=== PATIENT | female | born 2005 | race Hispanic/Latino ===

== ENCOUNTER → 2024-03-20 | Day surgery (SDC) | payer OTHER ==
[2024-03-19 12:26] LABS: BASOPHILS % 0.3 % (0.0-1.0); EOSINOPHILS # (AUTO) 0.4 (0.0-0.4); EOSINOPHILS % 3.6 % (0.0-6.0); HEMATOCRIT 41.6 % (34.2-44.1); HEMOGLOBIN 12.5 g/dL (12.0-16.0); LYMPHOCYTES # (AUTO) 2.6 (1.0-3.2); LYMPHOCYTES % 21.8 % (18.0-39.1); MEAN CORPUSCULAR HEMOGLOBIN 25.1 pg (28-32); MEAN CORPUSCULAR VOLUME 83.4 fL (81-99); MONOCYTES # (AUTO) 0.9 (0.2-0.8); MONOCYTES % 7.4 % (4.4-11.3); NEUTROPHILS # (AUTO) 7.9 (2.1-6.9); NEUTROPHILS % 66.3 % (38.7-80.0); PLATELET COUNT 352 x10e3/uL (140-360); RED BLOOD COUNT 4.99 x10e6/uL (3.6-5.1); RED CELL DISTRIBUTION WIDTH 16.6 % (11.7-14.4); WHITE BLOOD COUNT 11.88 x10e3/uL (4.8-10.8)
[~2024-03-20] MED LIST: ACETAMINOPHEN 1000 MG/100 ML 100 ML IV ONE; ALIGN4 MG PO; BUPIVACAINE HCL 0.5% INJ 30 ML VIAL INJ ONE; CEFPROZIL500 MG PO; KEFLEX125 MG/5 M PO; PROCTOSOL-HC28.35 GM PR; TYLENOL #3 PO; ULTRAM 50MG50 MG PO
[2024-03-20] MEDS: LACTATED RINGER'S 1,000 ML ONE (09:16)
[2024-03-20] MEDS: CEFTRIAXONE 1 GM VIAL ONE (09:16)
[2024-03-20] MEDS: FENTANYL CITRATE/PF 100MCG/2 ML INJ ONE (10:40)
[2024-03-20 11:35] VITALS: BP 120/68; PULSE 70; RESP 16; O2SAT 98
== END | disposition home or self-care (01) ==
LOC: OR 08:42
PROVIDERS: ATTEND Surgery
DX: L02.215 Cutaneous abscess of perineum (principal); K60.30 Anal fistula, unspecified; E66.01 Morbid (severe) obesity due to excess calories; Z01.812 Encounter for preprocedural laboratory examination; Z68.32 Body mass index [BMI] 32.0-32.9, adult
CPT/HCPCS: 36415; 46270; 56405; 84702; 85025; 87071; 87075; 87186; 87205; J0131; J0696; J3010; J7121